=== PATIENT | female | born 1985 ===

== ENCOUNTER 2020-08-21 00:58 | Inpatient (IN) | payer MEDICAID, OTHER ==
[~2020-08-21] VITALS: Ht 172.7 cm; Wt 105.0 kg
[2020-08-21] MEDS ORDERED: ACETAMINOPHEN 325 MG TABLET PO PRN (01:30)
[2020-08-21] MEDS ORDERED: DOCUSATE 100 MG CAPSULE PO PRN (01:30)
[2020-08-21] MEDS ORDERED: BISACODYL 10 MG SUPP PR PRN (01:30)
[2020-08-21] MEDS ORDERED: ONDANSETRON ODT 4 MG PO PRN (01:30)
[2020-08-21] MEDS ORDERED: POLYETHYLENE GLYCOL 17 GM PACKET PO PRN (01:30)
[2020-08-21 03:34] VITALS: BP 115/81
[2020-08-21 07:34] VITALS: BP 105/73
[2020-08-21] MEDS: NICOTINE 14MG/24 HR PATCH.TD24 TD SCH (09:00)
[2020-08-21] MEDS ORDERED: LORazepam 1MG TABLET PO ONE (13:30)
[2020-08-21] MEDS ORDERED: ZIPRASIDONE 20MG CAPSULE PO PRN (13:30)
[2020-08-21] MEDS ORDERED: LORazepam 1MG TABLET PO PRN (13:30)
[2020-08-21 19:31] VITALS: BP 105/72
[2020-08-22 06:50] LABS: CHOL/HDL RATIO 4.6; FREE T4 (FREE THYROXINE) 1.37 ng/dL (0.76-1.46); LDL/HDL RATIO 2.7 (0.5-3.0)
[2020-08-22 07:16] VITALS: BP 137/87
[2020-08-22] MEDS: NICOTINE 14MG/24 HR PATCH.TD24 TD SCH (08:37)
[2020-08-22 13:04] LABS: MICROSCOPIC AUTO
[2020-08-22 19:59] VITALS: BP 115/79
[2020-08-23 07:23] VITALS: BP 132/84
[2020-08-23] MEDS: NICOTINE 14MG/24 HR PATCH.TD24 TD SCH (08:53)
[2020-08-23 19:18] VITALS: BP 128/84
[2020-08-24 07:10] VITALS: BP 119/84
[2020-08-24] MEDS: NICOTINE 14MG/24 HR PATCH.TD24 TD SCH (09:00)
== END 2020-08-24 10:59 | disposition home or self-care (01) | DRG 750 ==
LOC: 3E 02:58
PROVIDERS: ADMIT Psychiatry & Neurology Psychosomatic Medicine; ATTEND Psychiatry & Neurology Psychosomatic Medicine
DX: F25.0 Schizoaffective disorder, bipolar type (principal); R45.851 Suicidal ideations; F22 Delusional disorders; F17.210 Nicotine dependence, cigarettes, uncomplicated; E66.9 Obesity, unspecified; Z68.35 Body mass index [BMI] 35.0-35.9, adult; Z91.19 Patient's noncompliance with other medical treatment and regimen
CPT/HCPCS: 36415; 80061; 81001; 84439; 84443; 84703; 87086; 93005